=== PATIENT | male | born 1960 | race Caucasian/White ===

== ENCOUNTER 2017-04-14 19:33 | Inpatient (IN) | payer OTHER ==
[~2017-04-14] VITALS: Ht 167.6 cm; Wt 91.0 kg
[2017-04-14] MEDS ORDERED: ONDANSETRON 4 MG INJ IV STA (20:09)
[2017-04-14] MEDS ORDERED: morphine 4 MG/ML VIAL IV STA (20:09)
[2017-04-14] MEDS ORDERED: ATEN50TA PO (20:23)
[2017-04-14] MEDS ORDERED: ASPI-664 PO (20:23)
[2017-04-14] MEDS ORDERED: AMLO5TAB4 PO (20:24)
[2017-04-14] MEDS ORDERED: LEVO500T10 PO (20:25)
[2017-04-14] MEDS ORDERED: MUSINEX PO (20:25)
[2017-04-14] MEDS ORDERED: GUAI1TBM PO (20:26)
[2017-04-14] MEDS ORDERED: NITROGLYCERIN (SL) 0.4 MG TAB SL ONE (20:30)
[2017-04-14] MEDS ORDERED: ASPIRIN 81 MG TAB PO ONE (20:30)
[2017-04-14] MEDS ORDERED: hydrALAzine 20 MG INJ IV ONE (20:30)
[2017-04-14 20:59] LABS: BASOPHILS % 0.1 % (0.0-2.0); HEMATOCRIT 42.9 % (42.0-52.0); HEMOGLOBIN 14.9 g/dl (14.0-18.0); LYMPHOCYTES # 0.7 10^3/ul (0.8-2.9); LYMPHOCYTES % 9.2 % (15.0-51.0); MEAN CORPUSCULAR HEMOGLOBIN 30.5 pg (29.0-33.0); MEAN CORPUSCULAR HGB CONC 34.7 g/dl (32.0-37.0); MEAN CORPUSCULAR VOLUME 87.7 fl (82.0-101.0); MEAN PLATELET VOLUME 9.8 fl (7.4-10.4); MONOCYTE # 0.1 10^3/ul (0.3-0.9); MONOCYTES % 1.5 % (0.0-11.0); NEUTROPHIL # 6.9 10^3/ul (1.6-7.5); NEUTROPHILS % 88.6 % (39.0-77.0); PLATELET COUNT 199 10^3/UL (140-415); RED BLOOD COUNT 4.89 10^6/ul (4.70-6.10); RED CELL DISTRIBUTION WIDTH 12.4 % (11.5-14.5); WHITE BLOOD COUNT 7.8 10^3/ul (4.8-10.8)
[2017-04-14 21:13] LABS: INR 0.94; PROTIME 12.7 Sec (11.9-14.9)
[2017-04-14 21:19] LABS: ALBUMIN/GLOBULIN RATIO 1.58; CALCIUM 9.9 mg/dl (8.4-10.2); CREATININE 1.18 mg/dl (0.61-1.24)
[2017-04-14 21:26] LABS: ALBUMIN 4.6 g/dl (3.3-4.9); BILIRUBIN,INDIRECT 0.2 mg/dl (0-1.1); BILIRUBIN,TOTAL 0.2 mg/dl (0.2-1.3); TOTAL PROTEIN 7.5 g/dl (6.1-8.1)
[2017-04-14 21:31] LABS: TROPONIN-I 0.028 ng/ml (0.00-0.12)
--- NOTE | 2017-04-14 21:49 | RADRPT ---
PROCEDURE: XR Chest. CLINICAL INDICATION: Abdominal Pain TECHNIQUE: Single frontal view of the chest was obtained COMPARISON: None FINDINGS: The heart is borderline enlarged. The lungs are clear. There is no pleural effusion or pneumothorax. There are degenerative changes of the spine and shoulder joints. IMPRESSION: 1. No acute cardiopulmonary disease. RPTAT:AAJJ Physician Lara Date Time Electronically viewed and signed by Daylin Oviedo Physician on 04/14/2017 21:48 QL/
--- NOTE | 2017-04-14 23:00 | ERD ---
ER Documentation Chief Complaint Chief Complaint bib for cp on and off all day, sob, has ekg from prior urgent care vis HPI 56-year-old man referred here by PMD for abnormal EKG and complaints of pressure -like chest discomfort today. He also has a long history of hypertension states he has been using his medications as prescribed. Discomfort is left- sided exertional, nonradiating. He denies fevers or chills, no cough, no calf or leg swelling. ROS All systems reviewed and are negative except as per history of present illness. Medications Home Meds Reported Medications Guaifenesin/Dextromethorphan (Mucinex Dm ER 1,200-60 mg Tab) 1 Each Tbmp.12hr, 1 EACH PO Q12H, TAB 04/14/17 Levofloxacin* (Levofloxacin*) 500 Mg Tablet, 500 MG PO DAILY, TAB 04/14/17 Amlodipine Besylate* (Norvasc*) 5 Mg Tablet, 5 MG PO QPM, TAB 04/14/17 Aspirin* (Aspirin* EC) 81 Mg Tablet.dr, 81 MG PO DAILY, TAB 04/14/17 Atenolol* (Atenolol*) 50 Mg Tablet, 50 MG PO QAM, #30 TAB 04/14/17 Discontinued Reported Medications [Musinex] No Conflict Check, 1 TAB PO Q12H 04/14/17 Allergies Allergies: Coded Allergies: sulfamethoxazole (Verified Allergy, Unknown, 04/14/17) trimethoprim (Verified Allergy, Unknown, 04/14/17) PMhx/Soc Hypertension History of Surgery: Yes (left clavicle) Hx Cardiac Disorders: Yes (htn, cholesterlo) Hx Miscellaneous Medical Probl: Yes (gout) Hx Alcohol Use: No Hx Substance Use: No Hx Tobacco Use: No Smoking Status: Former smoker FmHx Family History: No diabetes Physical Exam Vitals Vital Signs Date Time Temp Pulse Resp B/P Pulse Ox O2 Delivery O2 Flow Rate FiO2 04/14/17 21:05 85 16 117/80 98 Nasal Cannula 2.0 04/14/17 20:19 Nasal Cannula 2 04/14/17 20:14 91 16 143/104 99 Nasal Cannula 2.0 04/14/17 19:44 98.9 89 25 182/101 100 Physical Exam GENERAL: Well-developed, well-nourished, well-hydrated, in no apparent distress , looks nontoxic in appearance HEENT: Moist mucous membranes, pink conjunctiva, no cervical spine tenderness or step-off deformities, no goiter, no jaundice or icterus, extraocular movements intact without pain. No submandibular induration, and no pharyngeal erythema NEURO: Alert and oriented 3, cranial nerves II through XII intact bilaterally, pupils equal round reactive to light, no focal deficits or facial asymmetry, sensation intact distally Strength 5/5 in upper and lower extremities bilaterally CARDIAC: Regular rate and rhythm, no murmurs rubs or gallops LUNGS: Clear bilaterally no wheezing crackles or stridor ABDOMEN: Soft nontender, no guarding, no rigidity, no rebound, no psoas sign no obturator sign. Normoactive bowel sounds SKIN: Warm and dry to touch, no abrasions, contusions, or hematomas, no lacerations, no ecchymosis, no target lesions, and without ulcers EXTREMITIES: No clubbing cyanosis or edema, calves are bilaterally symmetrical, no Homans sign, no popliteal cord sign. Distal pulses equal and bilateral PSYCH: Normal affect without agitation or irritability Result Diagram: 04/14/17201404/14/172014 Results 24 hrs Laboratory Tests Test 04/14/17 20:15 White Blood Count 7.810^3/ul Red Blood Count 4.8910^6/ul Hemoglobin 14.9g/dl Hematocrit 42.9% Mean Corpuscular Volume 87.7fl Mean Corpuscular Hemoglobin 30.5pg Mean Corpuscular Hemoglobin Concent 34.7g/dl Red Cell Distribution Width 12.4% Platelet Count 01805^3/UL Mean Platelet Volume 9.8fl Neutrophils % 88.6% Lymphocytes % 9.2% Monocytes % 1.5% Eosinophils % 0.0% Basophils % 0.1% Nucleated Red Blood Cells % 0.0/100WBC Neutrophils # 6.910^3/ul Lymphocytes # 0.710^3/ul Monocytes # 0.110^3/ul Eosinophils # 0.010^3/ul Basophils # 0.010^3/ul Nucleated Red Blood Cells # 0.010^3/ul Prothrombin Time 12.7Sec Prothrombin Time Ratio 1.0 INR International Normalized Ratio 0.94 Sodium Level 138mmol/L Potassium Level 4.0mmol/L Chloride Level 101mmol/L Carbon Dioxide Level 25mmol/L Anion Gap 16 Blood Urea Nitrogen 19mg/dl Creatinine 1.18mg/dl Glucose Level 150mg/dl Calcium Level 9.9mg/dl Total Bilirubin 0.2mg/dl Direct Bilirubin 0.00mg/dl Indirect Bilirubin 0.2mg/dl Aspartate Amino Transf (AST/SGOT) 41IU/L Alanine Aminotransferase (ALT/SGPT) 53IU/L Alkaline Phosphatase 54IU/L Troponin I 0.028ng/ml Total Protein 7.5g/dl Albumin 4.6g/dl Globulin 2.90g/dl Albumin/Globulin Ratio 1.58 Lipase 67U/L Current Medications Medications (Trade) Dose Ordered Sig/Bryan Route PRN Reason Start Time Stop Time Status Last Admin Dose Admin Morphine Sulfate (morphine) 4 mg ONCE STAT IV 04/14/17 20:09 04/14/17 20:14 DC 04/14/17 20:47 Ondansetron HCl (Zofran Inj) 4 mg ONCE STAT IV 04/14/17 20:09 04/14/17 20:14 DC 04/14/17 20:46 Aspirin (Aspirin) 324 mg ONCE ONCE PO 04/14/17 20:30 04/14/17 20:31 DC 04/14/17 20:46 Nitroglycerin (Nitroglycerin (Sl Tab) 0.4 Mg) 1 tab ONCE ONCE SL 04/14/17 20:30 04/14/17 20:31 DC 04/14/17 20:47 Hydralazine HCl (Apresoline) 20 mg ONCE ONCE IV 04/14/17 20:30 04/14/17 20:31 DC [facility] IV line was established patient was placed on monitor worker rhythm strip revealed a sinus rhythm at about 90 bpm with upright P and T waves. Patient was afebrile Initial diastolic blood pressure was over 100 mmHg, I treated him here with aspirin 324 mg p.o. for cardioprotective measures, nitroglycerin 0.4 mg sublingual, morphine 4 mg IV, Zofran 4 mg IV. For later continued hypertension I administered hydralazine 20 mg IV 1. EKG performed, read by me revealed a normal sinus rhythm at 95 bpm, normal axis , narrow QRS complex with diffuse T-wave inversions, no ST elevations or depressions noted. Evidence of LVH in precordial leads One view chest x-ray performed, read by me revealed no acute infiltrates, no pneumothorax. CBC and electrolytes were normal, liver function tests were normal, troponin was negative. Cardiac Critical Care: Time: 55 minutes, this was time separate from other billable procedures Treatments/Evaluations: Close monitoring for dangerous arrhythmia, initial hypertension, and assessment for possible but unlikely cardiovascular collapse, all the while treating with advance cardiac medications and techniques. Patient will be admitted to telemetry setting under [facility] for continued medical management and cardiology consultation. Departure Diagnosis: Primary Impression: Chest pain Chest pain type: unspecified Qualified Code: R07.9 - Chest pain, unspecified type Additional Impressions: Hypertensive emergency Abnormal EKG Condition: GINETTE Ruth MD Apr 14, 2017 23:00
[2017-04-14] MEDS ORDERED: morphine 2 MG INJ IV PRN (23:30)
[2017-04-14] MEDS ORDERED: ACETAMINOPHEN 325 MG TAB PO PRN (23:30)
[2017-04-15] VITALS (12 sets, daily range): BP systolic 118–157; BP diastolic 71–97; PULSE 57–84; RESP 18–21; Ht 167.6 cm; Wt 91.0 kg
[2017-04-15 06:42] LABS: BASOPHILS % 0.2 % (0.0-2.0); HEMATOCRIT 41.7 % (42.0-52.0); HEMOGLOBIN 14.6 g/dl (14.0-18.0); LYMPHOCYTES # 1.1 10^3/ul (0.8-2.9); LYMPHOCYTES % 7.8 % (15.0-51.0); MEAN CORPUSCULAR HEMOGLOBIN 31.1 pg (29.0-33.0); MEAN CORPUSCULAR VOLUME 88.7 fl (82.0-101.0); MEAN PLATELET VOLUME 9.6 fl (7.4-10.4); MONOCYTE # 0.7 10^3/ul (0.3-0.9); MONOCYTES % 5.5 % (0.0-11.0); NEUTROPHIL # 11.7 10^3/ul (1.6-7.5); NEUTROPHILS % 85.9 % (39.0-77.0); PLATELET COUNT 194 10^3/UL (140-415); RED CELL DISTRIBUTION WIDTH 12.4 % (11.5-14.5); WHITE BLOOD COUNT 13.6 10^3/ul (4.8-10.8)
[2017-04-15 07:03] LABS: ALBUMIN 4.2 g/dl (3.3-4.9); ALBUMIN/GLOBULIN RATIO 1.35; BILIRUBIN,INDIRECT 0.6 mg/dl (0-1.1); BILIRUBIN,TOTAL 0.6 mg/dl (0.2-1.3); CALCIUM 9.4 mg/dl (8.4-10.2); CHOL/HDL RATIO 4.9 RATIO; CREATININE 1.08 mg/dl (0.61-1.24); POTASSIUM 4.5 mmol/L (3.5-5.1); TOTAL PROTEIN 7.3 g/dl (6.1-8.1)
[2017-04-15 07:11] LABS: TROPONIN-I 0.027 ng/ml (0.00-0.12)
[2017-04-15] MEDS: ASPIRIN (EC) 81 MG TAB PO SCH (09:51)
[2017-04-15] MEDS: AMLODIPINE 5 MG TAB PO SCH ×2 (09:53→21:05)
[2017-04-15] MEDS: LISINOPRIL 10 MG TAB PO SCH ×2 (09:55→21:05)
[2017-04-15] MEDS: ATENOLOL 50 MG TAB PO SCH (09:55)
--- NOTE | 2017-04-15 11:00 | QN ---
Documentation Comment H&P dict a/p 1. cards: chest pain, cards eval, plan stress, echo, risk factor modification (b0 marked htn, cont meds titration JAMES FERREIRA MD Apr 15, 2017 11:00
[2017-04-15] MEDS: HYDROCHLOROTHIAZIDE 25 MG TAB PO SCH (16:15)
--- NOTE | 2017-04-15 17:38 | HP ---
DATE OF ADMISSION: 04/14/2017 CHIEF COMPLAINT: Chest pain. HISTORY OF PRESENT ILLNESS: Mr. Jang presents to the emergency room at [facility] with umre st pain. He states that this has been going on for many months now where he has intermittent episod es of chest pain which last approximately 5 to 10 minutes. This is localized to the left and portio n of the chest. He describes it as sharp and stabbing, followed by a squeezing band-like pressure a cross the chest, sometimes with shortness of breath, sometimes with sweating. PAST MEDICAL HISTORY: Significant for hypertension. MEDICATIONS: As an outpatient include: 1. Norvasc 5 mg daily. 2. Atenolol 50 mg daily. 3. Aspirin 81 mg daily. ALLERGIES: BACTRIM. SOCIAL HISTORY: Patient lives in [place] with his and adult daughter. He is independent with activities of daily living. 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 He denies tobacco and alcohol. Is working as am [employer]. FAMILY HISTORY: Noncontributory. REVIEW OF SYSTEMS: Five systems are reviewed and found not to be revealing. PHYSICAL EXAMINATION: VITAL SIGNS: Blood pressure is 141/89, pulse rate 63, respirations 18, temperature is 97.1. GENERAL: Pleasant man in no acute distress. Alert and oriented x3. HEENT: Normocephalic, atraumatic without evident scleral icterus, or perioral cyanosis. Mucous mem branes are moist. NECK: Soft and supple without masses. No evidence of jugular venous distention or carotid bruits. CHEST: Clear to auscultation and percussion bilaterally. HEART: Regular rate and rhythm, S1-S2, no added sounds. ABDOMEN: Soft, nontender, nondistended without palpable hepatosplenomegaly. EXTREMITIES: Without clubbing, cyanosis or edema. SKIN: Without rashes. NEUROLOGIC: Grossly intact. LABORATORY STUDIES: Reveal a hemoglobin of 14.6 g/dL, white count of 13,600, platelets of 194,000. Sodium 140, potassium 4.5, chloride 102, bicarbonate 27, BUN 20, creatinine 1.08, glucose 136. Carolyn er function tests are unremarkable. Troponin is 0.028. This value was stable x3 draws. Total chol esterol is 218, LDL 139, HDL 44. ASSESSMENT AND PLAN: 1. Cardiac: The patient with convincing history for angina. We will obtain cardiology consultatio n and have requested echocardiogram and cardiac stress testing to be done at this point in time. Wi ll defer however, if cardiology recommends immediate angiogram. 2. Continue risk factor modification. Dictated By: JAMES FERREIRA MD RER/NTS Conf#: [id number] DID#: [id number]
[2017-04-15] MEDS ORDERED: ATORVASTATIN 40 MG TAB PO SCH (21:00)
[2017-04-16] VITALS (9 sets, daily range): BP systolic 127–140; BP diastolic 76–85; PULSE 45–57; RESP 18–20
[2017-04-16] MEDS: AMLODIPINE 5 MG TAB PO SCH (08:19)
[2017-04-16] MEDS: HYDROCHLOROTHIAZIDE 25 MG TAB PO SCH (08:20)
[2017-04-16] MEDS: ATENOLOL 50 MG TAB PO SCH (08:20)
[2017-04-16] MEDS: ASPIRIN (EC) 81 MG TAB PO SCH (08:21)
[2017-04-16] MEDS: LISINOPRIL 10 MG TAB PO SCH (08:21)
[2017-04-16] MEDS ORDERED: REGADENOSON 0.4 MG/5 ML SYG ONE (08:35)
--- NOTE | 2017-04-16 10:08 | RADRPT ---
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 Physician: JAMES FERREIRA Quality: Good Procedures: Transthoracic echocardiogram with complete 2D, M-Mode, and doppler examination. Indications: Chest Pain. 2D/M Mode Doppler Measurement Value Normal Ranges Measurement Value Normal Ranges AoR Diam MM 4.1 cm BLAISE Vmax 3.2 cm2 ACS MM 2.5 cm BLAISE VTI 3.2 cm2 LA/Ao MM 1.0 AV Mean Jovon 0.8 m/sec LA Dimen MM 4.3 cm AV Mean PG 3.1 mmHg LVIDd 2D 5.1 3.5 - 5.6 cm AV Peak Jovon 1.2 m/sec LVIDs 2D 3.6 2.1 - 4.1 cm AV Peak PG 6.0 mmHg LVPWd 2D 1.2 0.6 - 1.1 cm AV VTI 26.3 cm IVSd 2D 1.4 0.6 - 1.1 cm AI Peak PG 43.8 mmHg AoR Diam 2D 4.1 2.0 - 3.7 cm AI Peak Jovon 3.3 m/sec EDV 2D 123.3 cm3 AI PHT 367.6 msec ESV 2D 47.8 cm3 LVOT Peak Jovon 1.1 m/sec LVOT Diam 2.1 cm LVOT Peak PG 5.0 mmHg MV E Peak Jovon 0.7 m/sec MV A Peak Jovon 0.9 m/sec MV E/A 0.8 MV Decel Time 200 msec MV Decel Gilpin 3 MV E/A 0.8 TR Peak Jovon 2.4 m/sec TR Peak PG 22.1 mmHg RVSP 25.0 mmHg RA Pressure 3.0 Findings Left Ventricle: Normal left ventricular systolic function. Normal left ventricular cavity size. Mild asymmetric septal hypertrophy. Ejection fraction is visually estimated at 55 %. Tissue Doppler/Mitral Doppler indices are consistent with impaired relaxation (Stage I diastolic dysfunction). Right Ventricle: Normal right ventricular size. Normal right ventricular systolic function. Left Atrium: There is mild enlargement of left atrium. Right Atrium: The right atrium is normal in size. Mitral Valve: Normal appearance of the mitral valve. Trace mitral regurgitation. Aortic Valve: Normal appearance of the aortic valve. No significant aortic stenosis with mild insufficiency. Tricuspid Valve: Normal appearance of the tricuspid valve. Normal right ventricular systolic pressure. Estimated peak PA systolic pressure 25 mmHg. There is trace tricuspid regurgitation. Pericardium: Normal pericardium with no significant pericardial effusion. Aorta: There is mild aortic root dilation. IVC: The IVC is not well visualized. Conclusions 1.Normal left ventricular systolic function. Normal left ventricular cavity size. Mild asymmetric septal hypertrophy. Ejection fraction is visually estimated at 55 %. Tissue Doppler/Mitral Doppler indices are consistent with impaired relaxation (Stage I diastolic dysfunction). 2.There is mild enlargement of left atrium. 3.Normal appearance of the tricuspid valve. Normal right ventricular systolic pressure. Estimated peak PA systolic pressure 25 mmHg. There is trace tricuspid regurgitation. Electronically Signed By: Med Mccracken 16-Apr-2017 10:07:34 -0800 Patient Name: NEELA CAMERON Study Date: 15-Apr-2017 [id number]
--- NOTE | 2017-04-16 10:39 | CONS ---
Date/Time of Note Date/Time of Note DATE: 04/16/17 TIME: 10:35 Assessment/Plan Assessment/Plan Additional Assessment/Plan Chest pain Hypertension, poorly controlled Preserved ejection fraction Abnormal ECG -Serial cardiac enzymes have remained negative, echocardiogram with preserved ejection fraction. ECG with T-wave inversions. Would proceed with nuclear cardiac perfusion study. Continue aspirin, beta-raphael as heart rate and blood pressure permits, statin therapy. Further recommendations will be forthcoming as more information is available. Consultation Date/Type/Reason Admit Date/Time Apr 14, 2017 at 22:34 Type of Consultation: cv Reason for Consultation Chest pain and shortness of breath Hx of Present Illness This is a 56-year-old male with past medical history of hypertension who presents with chest discomfort. Symptoms have been off-and-on over the past few months. Symptoms at times or with exertion and occasionally present at rest. At times symptoms are associated with shortness of breath. He does notice progressive decrease in physical activity. Denies any cough. He does have a history of hypertension and he has noticed his blood pressure has not been well controlled. His last episode of chest discomfort was yesterday. 12 point review of systems was performed with all pertinent positives and negatives mentioned above and all else is negative Past Medical History Medical History: hypertension Past Surgical History Past Surgical Hx: other (Orthopedic surgery on clavicle) Social History Smoking Status: Former smoker Other Social History Works for [employer] Exam/Review of Systems Vital Signs Vitals Vital Signs Date Time Temp Pulse Resp B/P Pulse Ox O2 Delivery O2 Flow Rate FiO2 04/16/17 08:33 51 04/16/17 08:02 98.0 18 129/85 98 04/15/17 08:00 Nasal Cannula 2.0 Intake and Output 04/15/17 04/15/17 04/16/17 15:00 23:00 07:00 Intake Total 880 ml 300 ml Balance 880 ml 300 ml Exam No apparent distress Constitutional: alert, oriented, well developed Head: normocephalic Respiratory: clear to auscultation, normal air movement Cardiovascular: other (S1-S2 heard), regular rate and rhythm Gastrointestinal: bowel sounds, non-tender, soft Extremities: other (No edema) Results Result Diagram: 04/15/1761704/15/17617 Medications Medications Current Medications Aspirin (Halfprin) 81 mg DAILY PO Last administered on 04/16/17 08:21; Admin Dose 81 MG; Start 04/15/17 at 09:00 Atenolol (Tenormin) 50 mg QAM PO Last administered on 04/16/17 08:20; Admin Dose 50 MG; Start 04/15/17 at 09:00 Atorvastatin Calcium (Lipitor) 40 mg DAILY@21 PO Last administered on 21:05; Admin Dose 40 MG; Start 04/15/17 at 21:00 Amlodipine Besylate (Norvasc) 5 mg Q12 PO Last administered on 04/16/17 08:19 ; Admin Dose 5 MG; Start 04/15/17 at 09:00 Lisinopril (Zestril) 10 mg Q12 PO Last administered on 04/16/17 08:21; Admin Dose 10 MG; Start 04/15/17 at 09:00 Hydralazine HCl (Apresoline) 25 mg Q6H PRN PO sbp>160; Start 04/14/17 at 23:30 Acetaminophen (Tylenol Tab) 650 mg Q4H PRN PO pain/fever Last administered on 04/15/17 21:09; Admin Dose 650 MG; Start 04/14/17 at 23:30 Morphine Sulfate (morphine) 2 mg Q2H PRN IV pain; Start 04/14/17 at 23:30 Hydrochlorothiazide (Hydrochlorothiazide) 25 mg DAILY PO Last administered on 04/16/17 08:20; Admin Dose 25 MG; Start 04/15/17 at 11:30 Procedures Procedures ECG demonstrates sinus rhythm at 95 bpm, QRS 86 ms, lateral T-wave inversions Jose Hernandez DO Apr 16, 2017 10:39
--- NOTE | 2017-04-16 10:53 | EN ---
Date/Time of Note Date/Time of Note DATE: 04/16/17 TIME: 10:50 Event Note Cardiology Cardiology Event Note Lexiscan nuclear ECG report Date of service 04/16/2017 This is a 56-year-old male with history of hypertension and abnormal ECG who presents with chest pain Baseline ECG with sinus bradycardia at 50 bpm, T-wave inversions Baseline blood pressure 153/95 Lexiscan administered as per protocol Symptoms of nausea, shortness of breath which resolved in recovery ECG with diffuse T-wave inversions, no significant change from baseline No significant arrhythmias seen Peak blood pressure 153/95 ECG interpretation is uninterpretable secondary to baseline T-wave abnormalities The imaging portion will be reported by our radiology colleagues Jose Hernandez DO Apr 16, 2017 10:53
--- NOTE | 2017-04-16 11:46 | PN ---
Date/Time of Note Date/Time of Note DATE: 04/16/17 TIME: 11:45 Assessment/Plan VTE Prophylaxis VTE Prophylaxis Intervention: ambulation Lines/Catheters IV Catheter Type (from Nrs): Saline Lock Urinary Cath still in place: No Assessment/Plan Assessment/Plan 1. cards: chest pain, await stress, echo reassuring 2. anticipate d/c home this pm Subjective 24 Hr Interval Summary Free Text/Dictation no complaint, no further cp or sob Exam/Review of Systems Vital Signs Vitals Vital Signs Date Time Temp Pulse Resp B/P Pulse Ox O2 Delivery O2 Flow Rate FiO2 04/16/17 08:33 51 04/16/17 08:02 98.0 18 129/85 98 04/15/17 08:00 Nasal Cannula 2.0 Intake and Output 04/15/17 04/15/17 04/16/17 15:00 23:00 07:00 Intake Total 880 ml 300 ml Balance 880 ml 300 ml Exam nad, ctab, rrr, soft nt Results Result Diagram: 04/15/1718 04/15/1718 Medications Medications Current Medications Aspirin (Halfprin) 81 mg DAILY PO Last administered on 04/16/17 08:21; Admin Dose 81 MG; Start 04/15/17 at 09:00 Atenolol (Tenormin) 50 mg QAM PO Last administered on 04/16/17 08:20; Admin Dose 50 MG; Start 04/15/17 at 09:00 Atorvastatin Calcium (Lipitor) 40 mg DAILY@21 PO Last administered on 21:05; Admin Dose 40 MG; Start 04/15/17 at 21:00 Amlodipine Besylate (Norvasc) 5 mg Q12 PO Last administered on 04/16/17 08:19 ; Admin Dose 5 MG; Start 04/15/17 at 09:00 Lisinopril (Zestril) 10 mg Q12 PO Last administered on 04/16/17 08:21; Admin Dose 10 MG; Start 04/15/17 at 09:00 Hydralazine HCl (Apresoline) 25 mg Q6H PRN PO sbp>160; Start 04/14/17 at 23:30 Acetaminophen (Tylenol Tab) 650 mg Q4H PRN PO pain/fever Last administered on 04/15/17 21:09; Admin Dose 650 MG; Start 04/14/17 at 23:30 Morphine Sulfate (morphine) 2 mg Q2H PRN IV pain; Start 04/14/17 at 23:30 Hydrochlorothiazide (Hydrochlorothiazide) 25 mg DAILY PO Last administered on 04/16/17 08:20; Admin Dose 25 MG; Start 04/15/17 at 11:30 JAMES FERREIRA MD Apr 16, 2017 11:46
[2017-04-16] MEDS ORDERED: ATOR40TA68 PO (11:50)
[2017-04-16] MEDS ORDERED: AMLO-147 PO (11:50)
[2017-04-16] MEDS ORDERED: HYDR25TA6 PO (11:50)
[2017-04-16] MEDS ORDERED: LISI20TA11 PO (11:50)
--- NOTE | 2017-04-16 11:50 | RADRPT ---
PROCEDURE: Lexiscan myocardial perfusion study CLINICAL INDICATION: 56 -year-old patient complaining of chest pain. TECHNIQUE: Lexiscan 0.4 mg intravenously separate acquisition gated myocardial perfusion SPECT usi ng Tc 99m Myoview 31.5 mCi intravenously at stress and Tc-99m Myoview, 11.0 mCi intravenously at res t was performed using the rest/stress sequence. Poststress Myoview SPECT images were obtained in th e supine position. COMPARISON: No prior studies. FINDINGS: Perfusion images reveal no evidence of perfusion defects. Lexiscan post stress gated SPECT images demonstrate no wall motion abnormalities. IMPRESSION: 1. No evidence of perfusion defects. 2. No wall motion abnormalities. 3. The left ventricle ejection fraction at stress is 53%. RPTAT: QQ .Maria Teresa Mccauley MD, MD Date Time Electronically viewed and signed by .Maria Teresa Mccauley MD, MD on 04/16/2017 11:49 .L/
--- NOTE | 2017-04-16 11:51 | PDOCDIS ---
Discharge Instructions DIAGNOSIS Discharge Diagnosis 1. high blood pressure out of control 2. chest pain CONDITION Patient Condition: Good HOME CARE INSTRUCTIONS: Diet Instructions: Reduced SodiumSpecial Diet: CARDIAC FARSHAD ACTIVITY: Activity Restrictions: Slowly Increase Activity FOLLOW UP/APPOINTMENTS Follow-up Plan 1. primary care 1 week 2. cardiology next available JAMES FERREIRA MD Apr 16, 2017 11:50
--- NOTE | 2017-04-16 17:33 | DS ---
DATE OF ADMISSION: 04/14/2017 DATE OF DISCHARGE: 04/16/2017 DISCHARGE DIAGNOSES: 1. Hypertension out of control, improved. 2. Chest pain. 3. Hyperlipidemia. HOSPITAL COURSE: Mr. Jang presents to the emergency room at [facility] with chest pains. He has noted at that time to have severe hypertension to a value of approximately 200/110. He is se en and evaluated and admitted to hospital. Serial troponins were performed and negative, echocardio gram reveals preserved ejection fraction and no significant valvular lesion. His blood pressure is controlled with additional medications. He is noted to have hyperlipidemia and he was commenced on statin therapy. At the time of this dictation, he is pending a nuclear stress test result in this a ssumes this will be negative for reversible ischemia and that he will be discharged to home. DISCHARGE MEDICATIONS: The patient was asked to continue the following medicines without changes: 1. Aspirin 81 mg daily. 2. Atenolol 50 mg daily. The patient is asked to take the following medicines changed dose: Norvasc 10 mg daily. The patient is asked to commence the following new medications: 1. Hydrochlorothiazide 25 mg daily. 2. Lisinopril 20 mg daily. 3. Lipitor 40 mg daily. DISCHARGE DISPOSITION: Home. DISCHARGE ACTIVITY: Increase in physical activity. DISCHARGE DIET: Low sodium diet recommended. DISCHARGE FOLLOWUP: With primary care in 1 week and with cardiology next available appointment. SUGGESTIONS FOLLOWUP CARE: 1. Continue to ensure adequate blood pressure control. 2. Patient encouraged to take on a program of diet and exercise with a goal of weight loss. Dictated By: JAMES FINNEY/JUNE Conf#: [id number] DID#: [id number]
== END 2017-04-16 16:10 | disposition home or self-care (01) | DRG 313 ==
LOC: E/R 19:33 → TEL 22:34
PROVIDERS: ADMIT Legal Medicine; ATTEND Legal Medicine
DX: R07.9 Chest pain, unspecified (principal); I10 Essential (primary) hypertension; I16.1 Hypertensive emergency; M10.9 Gout, unspecified; Z79.82 Long term (current) use of aspirin; Z87.891 Personal history of nicotine dependence
CPT/HCPCS: 36415; 71010; 78452; 80053; 80061; 83690; 84484; 85025; 85610; 93005; 93017; 93306; 96374; 96375; A9500; A9505; J0360; J2270; J2405; J2785